=== PATIENT | male | born 1980 | race Caucasian/White ===

== ENCOUNTER 2017-03-07 10:16 | Emergency (ER) | payer OTHER ==
[~2017-03-07] VITALS: Ht 172.7 cm; Wt 74.6 kg
[2017-03-07 10:25] VITALS: TEMP 36.8; Ht 172.7 cm; Wt 74.6 kg
[2017-03-07] MEDS ORDERED: LIDO/EPINEPHRINE/SOD BICARB 20 ML VIAL INFIL ONE (10:43)
[2017-03-07] MEDS ORDERED: LIDOCAINE/EPINEPHRINE 1% 20 ML VIAL INFIL ONE (10:45)
[2017-03-07] MEDS ORDERED: DIPHTHERIA/TETANUS/PERTUSSIS 0.5 ML SYR/VIAL IM. ONE (10:45)
--- NOTE | 2017-03-07 10:45 | EMERGENCY ROOM VISIT NOTE ---
History Report prepared by Roddy: Lacho Fuller Under the Supervision of: Dr. Navid Goldsmith M.D. First contact with patient: 10:29 Chief Complaint: LACERATION/CUT (SUT/DERMABOND) Stated Complaint: CUT FACE- Nursing Triage Summary: hit in face with a sledge hammer while at work 0900 tooth went through the right under lip, sore jaw, pt originally was dizzy he states that has passed History of Present Illness The patient is a 36 year old male who presents to the Emergency Room with complaints of pain in the left lower lip, and jaw after he was impacted by a sledge hammer at work today. The patient states that he was impacted in the face with a sledge hammer at 0900, 1.5 hours prior to arrival. He believes that one of his teeth punctured through the lower lip. He notes that he remembers the entire event, and did not lose consciousness at any time. The patient does admit to getting dizzy after being hit. The dizziness has resolved at that time. The patient did start to develop a slight headache upon arrival to the Emergency Department, he rates this as a 1/10 in severity. He is not on any blood thinners. Source of History: patient Onset: 1.5 hours [employer] Position: head (Face; lower lip) Quality: other (Laceration, accident) Associated Symptoms: + headache, No LOC Review of Systems See HPI for pertinent positives and negatives. A total of ten systems were reviewed and were otherwise negative. Past Medical & Surgical Patient denies any past medical or surgical histories. Family History FHx: heart disease FATHER Social History Smoking Status: Heavy Tobacco Smoker Marital Status: Housing Status: lives with significant other Occupation Status: employed Current/Historical Medications Scheduled Amoxicillin & Pot Clavulanate (Augmentin 875-125 mg), 875 MG PO BID Allergies Coded Allergies: No Known Allergies (Unverified , 03/07/17) Physical Exam Vital Signs Date Time Temp Pulse Resp B/P (MAP) Pulse Ox O2 Delivery O2 Flow Rate FiO2 03/07/17 11:32 86 18 150/88 96 Room Air 03/07/17 10:25 36.8 92 20 151/101 97 Room Air Physical Exam GENERAL: Awake, alert, well-appearing, in no distress HENT: Normocephalic, there is a 2cm laceration to the right chin. no hemotympanum bilaterally, urrutia sign negative bilaterally. Oropharynx unremarkable. There is a 1 cm laceration to the inside of the cheek. no facial instability EYES: Normal conjunctiva. Sclera non-icteric. PERRL bilaterally. EOMI bilaterally. NECK: Supple. No nuchal rigidity. FROM. No JVD. No C-spine tenderness. RESPIRATORY: Clear to auscultation. no wheezes rales or rhonchi CARDIAC: Regular rate, normal rhythm. Extremities warm and well perfused. Equal palpable radial pulses to the bilateral upper extremities. Equal palpable DP pulses to the bilateral lower extremities. ABDOMEN: Soft, non-distended. No tenderness to palpation. No rebound or guarding. No masses. Rovsig Negative. RECTAL: Deferred. MUSCULOSKELETAL: Chest examination reveals no tenderness. The back is symmetrical on inspection without obvious abnormality. There is no CVA tenderness to palpation. No joint edema. LOWER EXTREMITIES: Calves are equal size bilaterally and non-tender. No edema. No discoloration. NEURO: Normal sensorium. No sensory or motor deficits noted. No pronator drift. No facial droop. No dysarthria. SKIN: No rash or jaundice noted. Medical Decision & Procedures Medications Administered Medications (Trade) Dose Ordered Sig/Rogelio Route Start Time Stop Time Status Last Admin Dose Admin Lidocaine/ Epinephrine (Xylocaine/Epine 1% Inj) 20 ml ONE ONCE INFIL 03/07/17 10:45 03/07/17 10:46 DC 03/07/17 10:45 20 ML Diphtheria/ Pertussis/Tetanus Vacc (Adacel Inj) 0.5 ml ONCE ONCE IM. 03/07/17 10:45 03/07/17 10:46 DC 03/07/17 10:52 0.5 ML Procedure Location: External Chin Total length: 2cm Complexity: Simple Verbal consent was obtained after the risks and benefits were explained, including but not limited to bleeding, scarring, infection, pain, and bone/joint /nerve damage. At this time, the risks of the procedure are less than the risks of NOT performing the procedure. A time out was taken and the correct patient and site identified. The skin was prepped with betadine. The target area was anesthetized with 3 ml of 1% lidocaine with epinephrine. Copious irrigation was performed using normal saline. The wound was explored for foreign bodies and none found. Examination revealed no injury to deep structures such as tendons, bone, or significant blood vessels. Debridement was not performed. The wound edges were approximated using 1, 6-0 simple interrupted nylon suture. Hemostasis and excellent approximation was achieved. Antibacterial ointment and a sterile dressing applied. Detailed wound care instructions and signs and symptoms of infection reviewed with the patient. No complications and the patient tolerated the procedure well. Location: Intraoral right side of mouth Total length: 2cm Complexity: simple Verbal consent was obtained after the risks and benefits were explained, including but not limited to bleeding, scarring, infection, pain, and bone/joint /nerve damage. At this time, the risks of the procedure are less than the risks of NOT performing the procedure. A time out was taken and the correct patient and site identified. The target area was anesthetized with 3 ml of 1% lidocaine without epinephrine. Copious irrigation was performed using normal saline. The wound was explored for foreign bodies and none found. Examination revealed no injury to deep structures such as tendons, bone, or significant blood vessels. Debridement was not performed. The wound edges were approximated using 1, 6-0 simple interrupted absorbable sutures. Hemostasis and excellent approximation was achieved. Detailed wound care instructions and signs and symptoms of infection reviewed with the the patient. No complications and the patient tolerated the procedure well. ED Course 1033: The patient was evaluated in room B7. A complete history and physical exam was performed. 1150: I reevaluated the patient after wound closure, not in any pain or distress. Discussed results and discharge instructions: He verbalized understanding and agreement. The patient is ready for discharge. Medical Decision Patient's vital stable, patient is certain he did not suffer LOC, and is not on any blood thinners/no known bleeding disease, therefor no CT of the head is warranted at this time. Laceration repairs were performed. See procedural note for further details. Pt was discharged in stable conditions after work notes were completed. Work notes state he can return to work today. The patient expressed understanding. I answered any and all questions. I expressed return to work precautions. The patient understands and agrees. Impression Primary Impression: Facial laceration Additional Impressions: Laceration Head injury Scribe Attestation The scribe's documentation has been prepared under my direction and personally reviewed by me in its entirety. I confirm that the note above accurately reflects all work, treatment, procedures, and medical decision making performed by me. The chart was completed utilizing [employer] Speech voice recognition software. Grammatical errors, random word insertions, pronoun errors, and incomplete sentences are an occasional consequence of this system due to software limitations, ambient noise, and hardware issues. Any formal questions or concerns about the content, text, or information contained within the body of this dictation should be directly addressed to the physician for clarification. Departure Information Dispostion Home / Self-Care Prescriptions Amoxicillin & Pot Clavulanate (Augmentin 875-125 mg) 1 Tab Tab 875 MG PO BID for 7 Days, #14 TAB Prov: Navid Goldsmith M.D. 03/07/17 Forms HOME CARE DOCUMENTATION FORM, IMPORTANT VISIT INFORMATION Patient Instructions My [facility] Additional Instructions Return for follow-up in 2-3 days at emergency department, with her PCP, or at any urgent care center for wound check. Return in 7-10 days at emergency department, PCP office, or any urgent care center for suture removal to the external face. Problem Qualifiers Primary Impression: Facial laceration Encounter type: initial encounter Qualified Codes: S01.81XA - Laceration without foreign body of other part of head, initial encounter Additional Impressions: Head injury Encounter type: initial encounter Qualified Codes: S09.90XA - Unspecified injury of head, initial encounter
[2017-03-07 11:32] VITALS: BP 150/88; PULSE 86; O2SAT 96
[2017-03-07] MEDS ORDERED: AMOX875T PO (11:32)
== END 2017-03-07 11:56 | disposition home or self-care (01) ==
LOC: C.EDB 10:19
DX: S01.81XA Laceration without foreign body of other part of head, initial encounter (principal); S01.512A Laceration without foreign body of oral cavity, initial encounter; W27.8XXA Contact with other nonpowered hand tool, initial encounter; Y99.0 Civilian activity done for income or pay; Z23 Encounter for immunization; F17.200 Nicotine dependence, unspecified, uncomplicated; Z82.49 Family history of ischemic heart disease and other diseases of the circulatory system